=== PATIENT | female | born 1950 | race Caucasian/White ===

== ENCOUNTER → 2025-06-13 08:33 | Outpatient (REF) | payer MEDICARE, BC, SELFPAY ==
[2025-06-13 10:38] LABS: ALT (SGPT) 35 U/L (0-35); AST (SGOT) 27 U/L (14-36); Albumin 4.4 g/dl (3.5-5.0); Alkaline Phosphatase 127 U/L (38-126); HDL Cholesterol 64 mg/dl; LDL Cholesterol, Calculated 110 mg/dl; Total Protein 7.5 g/dl (6.3-8.2); Very Low Density Lipoprotein 27 mg/dl (0-30)
[2025-06-13 10:57] LABS: Glycohemoglobin (HgbA1c) 6.1 % (4.0-5.9)
== END ==
LOC: REG 08:33
PROVIDERS: ATTENDING PHYSICIAN Family Medicine
DX: R74.8 Abnormal levels of other serum enzymes (principal); E11.9 Type 2 diabetes mellitus without complications; E78.00 Pure hypercholesterolemia, unspecified
CPT/HCPCS: 36415; 80061; 80076; 83036